=== PATIENT | female | born 1995 | race African-American/Black ===

== ENCOUNTER 2017-02-14 11:40 | Emergency (ER) | payer OTHER ==
[2017-02-14 10:22] LABS: URINE SOURCE CLEAN CATCH
[2017-02-14 10:25] LABS: URINE APPEARANCE TURBID; URINE BILIRUBIN NEG (NEG); URINE BLOOD 3+ (NEG); URINE COLOR YELLOW; URINE GLUCOSE NEG (NEG); URINE KETONE NEG (NEG); URINE LEUKOCYTE ESTERASE 3+ (NEG); URINE NITRATE NEG (NEG); URINE PROTEIN 2+ (NEG); URINE SPECIFIC GRAVITY 1.027 (1.003-1.035)
[2017-02-14 10:28] LABS: CULTURE INDICATED? YES; URBCS1 AUWI INNUM /[HPF] (0-2); URINE BACTERIA AUWI NEG (NEGATIVE); URINE SQUAMOUS EPITHELIAL CELL OCC /[HPF]; UWBCS1 AUWI INNUM (0-5)
[~2017-02-14 11:40] MED LIST: AZITHROMYCIN250 MG; AZITHROMYCIN250 MG PO; FOCALIN5 MG; RONDEC-DM SYRU120 ML PO
== END 2017-02-14 12:25 | disposition home or self-care (01) ==
LOC: CED 11:40
DX: N39.0 Urinary tract infection, site not specified (principal); R31.9 Hematuria, unspecified; F90.9 Attention-deficit hyperactivity disorder, unspecified type
CPT/HCPCS: 81003; 84703; 87086; 99283

== ENCOUNTER 2017-04-12 14:37 | Emergency (ER) | payer OTHER ==
--- NOTE | ~2017-04-12 | CT71 ---
[facility] A Service of [facility] RADIOLOGY TEXT RESULTS PATIENT: VICKI YEPEZ LOCATION: [place] : [birth year] UNIT #: [id number] AGE: [address]: Rigo Coombs DO SEX: F ORDER DR: [id number] [facility] [address] [place], [place] [address] [id number] MR#: [id number] Acc #: [id number] NAME: VICKI YEPEZ : 1995 SEX: F STUDY DATE/TIME: 04/12/2017 16:11 UNIT: [place] ROOM: STUDY DESCRIPTION: CT Head Wo Contrast Attending Physician: Rigo Coombs D.O. Ordering Physician: Rigo Coombs D.O. Primary Care Physician: Demar Medeiros M.D. MEDICAL IMAGING REPORT This report is preliminary unless electronic signature is present EXAM CT head 04/12/2017 HISTORY Migraine headache pain behind forehead, onset 03/27/[address] head performed skull base through vertex without intravenous contrast. This CT exam was performed with one or more of the following radiation dose reduction techniques: automatic exposure control, adjustment of mA and/or kV according to patient size, and iterative reconstruction. COMPARISON 10/04/2013 FINDINGS No hemorrhage. No evidence of acute cortical ischemia. Brain stem unremarkable. Cerebellum and cerebral hemispheres show normal santillan matter - white matter differentiation. The midline structures are nondisplaced and the basal ganglia are intact. The ventricle cisterns and sulci are normal in size and contour. No intra or extra axial mass effect and no abnormal intracranial fluid collection. The intraorbital soft tissues are unremarkable. The visualized paranasal sinuses and mastoid air cells are clear. No fracture. IMPRESSION Normal CT of head. No change in appearance from 10/04/2013. If patient has ongoing neurologic symptoms, consider follow up imaging, preferably with MRI if the patient is a candidate. [facility] A Service [facility] RADIOLOGY TEXT RESULTS PATIENT: VICKI YEPEZ LOCATION: [place] : 95 UNIT #: [id number] AGE: [address]: Rigo Coombs DO SEX: F ORDER DR: Dictated by... Dejan Li M.D. THIS IS AN ELECTRONICALLY VERIFIED REPORT Dejan Li M.D. at 04/13/2017 2:21 PM MADINAK/yulissa TD: 04/12/2017 21:04 JOB #: [id number] MEDICAL IMAGING REPORT Page 1 of 1 COPY
[2017-04-12 14:55] LABS: URINE SOURCE CLEAN CATCH
[2017-04-12 14:58] LABS: URINE APPEARANCE CLEAR; URINE BILIRUBIN NEG (NEG); URINE BLOOD NEG (NEG); URINE COLOR YELLOW; URINE GLUCOSE NEG (NEG); URINE KETONE NEG (NEG); URINE LEUKOCYTE ESTERASE NEG (NEG); URINE NITRATE NEG (NEG); URINE PROTEIN NEG (NEG); URINE SPECIFIC GRAVITY 1.021 (1.003-1.035)
[2017-04-12 15:33] LABS: CULTURE INDICATED? NO
[2017-04-12 17:19] LABS: BASOPHIL# 0.1 X10e3 (0-0.3); BASOPHIL% 0.5 % (0-2.5); EOSINOPHIL# 0.1 X10e3 (0-0.7); EOSINOPHIL% 0.7 % (0.0-7.0); HEMOGLOBIN 13.3 gm/dL (12.0-16.0); LYMPHOCYTE# 2.6 X10e3 (1.0-3.5); LYMPHOCYTE% 25.4 % (17.0-45.0); MEAN CORPUSCULAR HEMOGLOBIN 24.6 PG (28-34); MEAN CORPUSCULAR HGB CONC 32.4 g/dL (30-36); MEAN PLATELET VOLUME 8.7 FL (6.5-11.5); MONOCYTE# 0.6 X10e3 (0-1.0); MONOCYTE% 5.5 % (3.0-12.0); NEUTROPHIL# 6.9 X10e3 (1.5-7.1); NEUTROPHIL% 67.9 % (40-75); PLATELET COUNT 275 X10e3 (140-420); RED CELL DISTRIBUTION WIDTH 14.6 % (11.0-15.5); WHITE BLOOD COUNT 10.1 X10e3 (4.0-10.5)
[2017-04-12 17:21] LABS: DIFF IND NO
[2017-04-12 17:32] LABS: ALBUMIN SERUM 3.8 g/dL (3.5-5.0); BILIRUBIN, DIRECT 0.1 mg/dL (0.0-0.2); BILIRUBIN,INDIRECT 0.5 mg/dL (0.0-0.9); BILIRUBIN,TOTAL 0.6 mg/dL (0.2-2.0); BUN/CREATININE RATIO 13.33; CALCIUM SERUM 9.1 mg/dL (8.4-10.2); CREATININE SERUM 0.6 mg/dL (0.6-1.4); POTASSIUM 3.9 mmol/L (3.5-5.1); PROTEIN TOTAL SERUM 7.4 g/dL (6.0-8.3)
== END 2017-04-12 18:20 | disposition home or self-care (01) ==
LOC: CED 14:37
DX: R10.9 Unspecified abdominal pain (principal); R19.7 Diarrhea, unspecified; R51 Headache; F90.9 Attention-deficit hyperactivity disorder, unspecified type; F17.200 Nicotine dependence, unspecified, uncomplicated
CPT/HCPCS: 36415; 70450; 80048; 80076; 81003; 83690; 84703; 85025; 96361; 96374; 96375; 99284; J1200; J2765